=== PATIENT | male | born 1925 | race Caucasian/White ===

== ENCOUNTER → 2016-07-07 | Outpatient (CLI) | payer MEDICARE, MEDICAID ==
[~2016-07-07] MED LIST: ACET325T38 PO; AMLO10TA82 PO; AMLO5TAB2 PO; AMOX500C2 PO; ASPI-586 PO; ASPI-84 PO; ATEN100T88; B; BENA; BUSP10TA95 PO; CALC-80 PO; CETI10CA PO; CHOL2000 PO; CITA10TA12 PO; CITA20TA12 PO; CNC1KV IJ; CYCL10TA9 PO; DCS100C PO; DENO60DI SQ; DITROPAN; DIVA125T2 PO; DNPZ10T; DONE5TAB30 PO; FOLI0.8C PO; FOLI1TAB24 PO; FOLIC ACID PO; GALA8TAB PO; GUAI-371; GUAI5SYR PO; HCT25T; HYDR-3002 PO; LCT30U PO; LISI40TA; LORA0.5T PO; LRT10T; MELA3TAB PO; MEMA5TAB2 PO; MEMA7CAP PO; MULT-68 PO; OMEG-109 PO; OMEG-9 PO; OXYB5TAB9 PO; PANT40TA2 PO; PANT40TA3 PO; POLY17PO23 PO; PRAV10TA PO; PRAV20TA PO; PROCRIT INJ; SENN-140 PO; SENN-20 PO; SIMV10TA PO; VIT; VIT1TABL93 PO; [UNRECOGNIZED DRUG - CODE] IJ; [UNRECOGNIZED DRUG - OTHER]; [UNRECOGNIZED DRUG - OTHER] INJ
[2016-07-07 21:47] LABS: BILIRUBIN,URINE NEGATIVE (NEGATIVE); KETONES,URINE NEGATIVE (NEGATIVE); LEUKOCYTE ESTERASE ,URINE 1+ (NEGATIVE); NITRITE,URINE NEGATIVE (NEGATIVE); PH,URINE 5 (5-9); PROTEIN,URINE 1+ (NEGATIVE); UROBILINOGEN,URINE NORMAL (NORMAL)
[2016-07-07 21:59] LABS: WBC,URINE 0-2 /HPF
[2016-07-07 22:00] LABS: HYALINE CASTS, URINE 0-2 /LPF
== END ==
LOC: HH 20:49 → CVS 20:49
PROVIDERS: ATTEND Internal Medicine
DX: R82.99 Other abnormal findings in urine (principal)
CPT/HCPCS: 81000

== ENCOUNTER 2016-07-15 21:30 | Inpatient (IN) | payer MEDICARE, MEDICAID ==
[~2016-07-15] VITALS: Ht 167.6 cm; Wt 55.9 kg
[~2016-07-15 21:30] MED LIST changes: -ACET325T38 PO; -CITA20TA12 PO; -DIVA125T2 PO; -GUAI5SYR PO; -LORA0.5T PO; -MELA3TAB PO; -PANT40TA3 PO; -SENN-140 PO
--- NOTE | 2016-07-15 22:04 | Diagnostic Imaging Report ---
INDICATION: Altered mental status. TECHNIQUE: Single view chest 9:44 PM. CORRELATION STUDY: 09/24/2015 FINDINGS: Heart size enlarged. Mediastinum is prominent but generally stable. Calcification of the aortic arch. Abnormal findings at the left lung base likely attributed to elevated diaphragm along with hernia. There is some volume loss at left lung base. Otherwise chronic change about the lung parenchyma. IMPRESSION: 1. Chronic type change about the lung parenchyma. Elevated left hemidiaphragm along with likely hernia results in some lung volume loss. Dictated by: Dictated on workstation # [id number]
[2016-07-15 22:25] LABS: BASOPHILS % (AUTO) 0 % (0-10); EOSINOPHILS # (AUTO) 0.2 10^3/uL (0.0-0.3); EOSINOPHILS % (AUTO) 3 % (0-10); LYMPHOCYTES # (AUTO) 1.7 X 10^3 (1.0-4.0); LYMPHOCYTES % (AUTO) 24 % (12-44); MEAN CORPUSCULAR HEMOGLOBIN 30 PG (25-34); MEAN CORPUSCULAR HGB CONC 31 G/DL (32-36); MEAN CORPUSCULAR VOLUME 96 FL (80-99); MEAN PLATELET VOLUME 10.9 FL (7.4-10.4); MONOCYTES # (AUTO) 0.7 X 10^3 (0.0-1.0); MONOCYTES % (AUTO) 10 % (0-12); NEUTROPHILS # (AUTO) 4.5 X 10^3 (1.8-7.8); NEUTROPHILS % (AUTO) 63 % (42-75); PLATELET COUNT 258 10^3/uL (130-400); RED BLOOD COUNT 4.41 10^6/uL (4.35-5.85); RED CELL DISTRIBUTION WIDTH 13.7 % (10.0-14.5); WHITE BLOOD COUNT 7.1 10^3/uL (4.3-11.0)
--- NOTE | 2016-07-15 22:31 | ED General ---
General Chief Complaint: Altered Mental Status Stated Complaint: AMS Source of Information: EMS, Family, Jail Records Exam Limitations: Other (PT WITH DEMENTIA AND CAN GIVE NO SIGNIFICANT INFORMATION) History of Present Illness Time Seen by Provider: 21:34 Initial Comments PT ARRIVES VIA EMS FROM VIA [facility] PT WITH DEMENTIA, BUT FAMILY REPORTS THAT HE HAS NOT BEEN NORMAL SINCE TUESDAY 07/11 THEY REPORT THAT SINCE SUNDAY, HE HAD NOT BEEN TALKING TO ANYONE WILL NOT OPEN HIS EYES, UNABLE TO STAND ( NORMALLY IS ABLE TO USE A WALKER ), AND HAD GENERALIZED TREMORS OFF AND ON--HAS BEEN ESSENTIALLY UNRESPONSIVE. THEY REPORT "IT WAS REALLY BAD ON SUNDAY" TONIGHT AROUND 1999, HE HAD AN EPISODE WHERE HE "WENT LIMP" FOR A BRIEF PERIOD OF TIME. EMS REPORT THAT ON THEIR ARRIVAL AT SCENE, PT WAS LETHARGIC AND INITIALLY WAS NOT INTERACTING AT ALL, THEN SUDDENLY HE BECAME ALERT AND WAS TALKING AND RECOGNIZED HIS . ACCUCHECK 111 BY EMS FAMILY REPORTS THAT HE IS BACK TO HIS NORMAL BASELINE NOW. PT CAN ANSWER YES/NO QUESTIONS APPROPRIATELY, AND DENIES PAIN ANYWHERE. DENIES NAUSEA. DENIES FEELING SHORT OF BREATH. DENIES HEADACHE. DENIES FEELING BAD IN ANY WAY. PT IS OTHERWISE CONFUSED AND HAS SOME NON-SENSICAL SPEECH, AND UNINTELLIGIBLE AT TIMES--FAMILY STATES IS NORMAL FOR HIM. PT IS DNR/DNI PCP: DR. WEBER Allergies and Home Medications Allergies Coded Allergies: levofloxacin (Verified Allergy, Mild, 07/06/15) Uncoded Allergies: ENVIRONMENTAL (Allergy, Mild, 07/11/08) Home Medications Acetaminophen 325 Mg Tablet, 650 MG PO Q4H PRN for PAIN-MILD OR TEMPATURE, ( Reported) Amlodipine Besylate 5 Mg Tablet, 5 MG PO DAILY for 30 Days Prescribed by: MACIE ACOSTA on 09/26/15 1002 Aspirin 81 Mg Tablet., 81 MG PO DAILY for 30 Days Prescribed by: MACIE ACOSTA on 09/26/15 1002 Citalopram Hydrobromide 20 Mg Tablet, 20 MG PO HS, (Reported) Divalproex Sodium 125 Mg Tablet.dr, 125 MG PO TID, (Reported) Guaifenesin/Dextromethorphan 5 Ml Syrup, 10 ML PO Q6H PRN for COUGH, (Reported) Lorazepam 0.5 Mg Tablet, 0.5-1 MG PO Q4H PRN for ANXIETY, (Reported) Melatonin 3 Mg Tablet, 3 MG PO HS, (Reported) Pantoprazole Sodium 40 Mg Tablet.dr, 40 MG PO DAILY, (Reported) Polyethylene Glycol 3350 17 Gm Powd.pack, 17 GM PO DAILY for 30 Days Prescribed by: TAZ LEW on 07/16/16310 Sennosides/Docusate Sodium 1 Each Tablet, 17.2 MG PO DAILY for 30 Days Prescribed by: TAZ LEW on 07/16/16310 Simvastatin 10 Mg Tablet, 10 MG PO HS for 30 Days Prescribed by: MACIE ACOSTA on 09/26/15 1002 Constitutional: see HPI Psychiatric/Neurological: See HPI Past Uzklbpc-Lkqeri-Zwlkie Hx Patient Social History Former Smoker/When Quit: Jan 01, 1974 Immunizations Up To Date Tetanus Booster (TDap): Unknown PED Vaccines UTD: No Date of Pneumonia Vaccine: Mar 19, 2010 Date of Influenza Vaccine: Jan 11, 2015 Seasonal Allergies Seasonal Allergies: No Surgeries HX Surgeries: Yes (SINUS ) Surgeries: Abdominal, Orthopedic, Prostatectomy Respiratory Hx Respiratory Disorders: No Cardiovascular Hx Cardiac Disorders: Yes Cardiac Disorders: High Cholesterol, Hypertension Neurological Hx Neurological Disorders: Yes (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) Neurological Disorders: Dementia, Stroke Reproductive System Hx Reproductive Disorders: No Sexually Transmitted Disease: No HIV/AIDS: No Genitourinary Hx Genitourinary Disorders: Yes (PROSTATE CANCER--S/P PROSTATECTOMY) Genitourinary Disorders: Prostate Problems, Renal Failure Gastrointestinal Hx Gastrointestinal Disorders: Yes Gastrointestinal Disorders: Abdominal Hernia, Gastroesophageal Reflux, Chronic Constipation, Hiatal Hernia Musculoskeletal Hx Musculoskeletal Disorders: Yes (WEAKNESS, POOR COORDINATION) Musculoskeletal Disorders: Osteoporosis, Arthritis, Back Injury, Chronic Back Pain, Fractures Endocrine Hx Endocrine Disorders: No HEENT HX ENT Disorders: No Loss of Vision: Denies Hearing Impairment: Hard of Hearing Cancer Hx Cancer: Yes Cancer: Prostate Psychosocial Hx Psychiatric Problems: No Behavioral Health Disorders: Depression Integumentary HX Skin/Integumentary Disorder: No Blood Transfusions Hx Blood Disorders: Yes (ANEMIA) Family Medical History Significant Family History: No Pertinent Family Hx Family Medial History: Completed stroke G8 BROTHER Dementia 19 FATHER G8 BROTHER G8 SISTER Hypertension G8 BROTHER Myocardial infarction 19 MOTHER No Family History of: AIDS Abdominal aortic aneurysm [place]'s disease Alcoholism Alzheimer's disease Aphasia Arthritis Asthma Cancer of mouth Cardiovascular disease Cataracts Colon cancer Congenital disease Congenital heart disease Coronary thrombosis Cystic fibrosis Deafness or hearing loss Diabetes mellitus Drug abuse Dysphasia Fibrocystic disease of breast Gastroenteritis Glaucoma Headache disorder Infertility Kidney disease Neoplasm Not obtainable due to adoption Osteoporosis Parkinson's disease Prostate cancer Psychosocial problem Respiratory disorder Seizure disorder Severe allergy Thyroid disease Tuberculosis Visual disorder Physical Exam Vital Signs Vital Sign - Last 12Hours 07/15/16 07/16/16 22:31 01:00 Temp 97.5 Pulse 86 Resp 18 B/P (MAP) 127/ Pulse Ox 97 O2 Delivery Room Air Capillary Refill : General Appearance: Thin, Other (PT RESTING, OPENS EYES SPONTANEOUSLY TO VOICE. ) Respiratory: Normal Breath Sounds, No Accessory Muscle Use, No Respiratory Distress Cardiovascular: Regular Rate, Rhythm, No Edema, No Murmur Gastrointestinal: Non Tender, Soft Extremity: Normal Range of Motion, Non Tender, No Pedal Edema Neurologic/Psychiatric: Alert, No Motor/Sensory Deficits (GROSSLY INTACT. ), Other (ORIENTED TO PERSON, DISORIENTED TO PLACE, TIME, SITUATION. ANSWERS YES/ NO QUESTIONS APPROPRIATELY, BUT OTHERWISE SPEECH IS NON-SENSICAL AND UNINTILLEGIBLE AT TIMES. CAN FOLLOW VERY SIMPLE COMMANDS) Skin: Normal Color, Warm/Dry Focused Exam Lactic Acid Level Laboratory Tests Test 07/16/16 00:19 Lactic Acid Level 1.67 MMOL/L (0.50-2.00) Progress/Results/Core Measures Results/Orders Lab Results Laboratory Tests Test 07/15/16 22:15 07/15/16 23:10 07/16/16 00:19 Range/Units White Blood Count 7.1 4.3-11.0 10^3/uL Red Blood Count 4.41 4.35-5.85 10^6/uL Hemoglobin 13.2 L 13.3-17.7 G/DL Hematocrit 42 40-54 % Mean Corpuscular Volume 96 80-99 FL Mean Corpuscular Hemoglobin 30 25-34 PG Mean Corpuscular Hemoglobin Concent 31 L 32-36 G/DL Red Cell Distribution Width 13.7 10.0-14.5 % Platelet Count 258 130-400 10^3/uL Mean Platelet Volume 10.9 H 7.4-10.4 FL Neutrophils (%) (Auto) 63 42-75 % Lymphocytes (%) (Auto) 24 12-44 % Monocytes (%) (Auto) 10 0-12 % Eosinophils (%) (Auto) 3 0-10 % Basophils (%) (Auto) 0 0-10 % Neutrophils # (Auto) 4.5 1.8-7.8 X 10^3 Lymphocytes # (Auto) 1.7 1.0-4.0 X 10^3 Monocytes # (Auto) 0.7 0.0-1.0 X 10^3 Eosinophils # (Auto) 0.2 0.0-0.3 10^3/uL Basophils # (Auto) 0.0 0.0-0.1 10^3/uL Prothrombin Time 13.0 12.2-14.7 SEC INR Comment 1.0 0.8-1.4 Activated Partial Thromboplast Time 24 24-35 SEC Sodium Level 146 H 135-145 MMOL/L Potassium Level 4.6 3.6-5.0 MMOL/L Chloride Level 107 98-107 MMOL/L Carbon Dioxide Level 28 21-32 MMOL/L Anion Gap 11 5-14 MMOL/L Blood Urea Nitrogen 41 H 7-18 MG/DL Creatinine 2.52 H 0.60-1.30 MG/DL Estimat Glomerular Filtration Rate 24 BUN/Creatinine Ratio 16 Glucose Level 118 H 70-105 MG/DL Calcium Level 9.8 8.5-10.1 MG/DL Magnesium Level 2.9 H 1.8-2.4 MG/DL Total Bilirubin 0.4 0.1-1.0 MG/DL Aspartate Amino Transf (AST/SGOT) 18 5-34 U/L Alanine Aminotransferase (ALT/SGPT) 11 0-55 U/L Alkaline Phosphatase 62 40-136 U/L Troponin I < 0.30 <0.30 NG/ML Total Protein 7.0 6.4-8.2 G/DL Albumin 4.0 3.2-4.5 G/DL TSH [place] Testing 2.05 0.35-4.94 UIU/ML Urine Color YELLOW Urine Clarity CLEAR Urine pH 6 5-9 Urine Specific [place] 1.020 1.016-1.022 Urine Protein 1+ H NEGATIVE Urine Glucose (UA) NEGATIVE NEGATIVE Urine Ketones 1+ H NEGATIVE Urine Nitrite NEGATIVE NEGATIVE Urine Bilirubin NEGATIVE NEGATIVE Urine Urobilinogen NORMAL NORMAL MG/DL Urine Leukocyte Esterase NEGATIVE NEGATIVE Urine RBC (Auto) 5+ H NEGATIVE Urine RBC >100 H /HPF Urine WBC 5-10 H /HPF Urine Squamous Epithelial Cells 0-2 /HPF Urine Crystals NONE /LPF Urine Bacteria TRACE /HPF Urine Casts PRESENT /LPF Urine Hyaline Casts 0-2 H /LPF Urine Mucus SMALL H /LPF Urine Culture Indicated YES Lactic Acid Level 1.67 0.50-2.00 MMOL/L My Orders Orders - TARA OLGUIN DO Saline Lock/Iv-Start (07/15/16 21:34) Ekg Tracing (07/15/16 21:34) Monitor-Rhythm Ecg Trace Only (07/15/16 21:34) Ct Head Wo (07/15/16 21:34) Cbc With Automated Diff (07/15/16 21:34) Comprehensive Metabolic Panel (07/15/16 21:34) Magnesium (07/15/16 21:34) Protime With Inr (07/15/16 21:34) Partial Thromboplastin Time (07/15/16 21:34) Thyroid Analyzer (07/15/16 21:34) Troponin I (07/15/16 21:34) Ua Culture If Indicated (07/15/16 21:34) Chest 1 View, Ap/Pa Only (07/15/16 21:34) O2 (07/15/16 21:34) Urine Culture (07/15/16 23:10) Lactic Acid Analyzer (07/15/16 23:40) Blood Culture (07/15/16 23:40) Saline Lock/Iv-Start (07/15/16 23:40) D5 1/2 Ns 1000 Ml Iv Solution (Dextrose (07/15/16 23:45) Ceftriaxone Injection (Rocephin Injectio (07/15/16 23:45) Vital Signs/I&O Vital Sign - Last 12Hours 07/15/16 07/16/16 07/16/16 22:31 01:00 01:08 Temp 97.5 98.6 97.5 Pulse 86 77 78 Resp 18 16 16 B/P (MAP) 127/ 137/73 Pulse Ox 97 98 O2 Delivery Room Air Room Air Progress Note : Progress Note UNEVENTFUL ER STAY PT RESTED QUIETLY FOR MOST OF ER STAY, BUT WAKES / ROUSES EASILY AND IS ALERT AND AT HIS NORMAL BASELINE, IS CONVERSIVE BUT CONFUSED --RECOGNIZES FAMILY. FOLLOWS VERY SIMPLE COMMANDS. ECG Initial ECG Impression Time: 22:02 Initial ECG Rate: 76 Initial ECG Rhythm: Normal Sinus Initial ECG Comparisson: Unchanged Diagnostic Imaging Comments CXR--NO ACUTE PROCESS, CHRONIC CHANGES--PER RADIOLOGIST REPORT @ 2230 CT HEAD--NO ACUTE PROCESS, CHRONIC CHANGES--PER [facility] VIA FAX @ [id number] Reviewed: Reviewed by Me Departure Communication Progress Notes 2338--SPOKE WITH DR. SOUSA, COVERING FOR DR. ACOSTA. ACCEPTS PT FOR ADMIT. Impression Impression: Primary Impression: ALTERED MENTAL STATUS -RESOLVED Additional Impressions: Dementia UTI (urinary tract infection) Dehydration Acute on chronic renal failure Disposition: ADMITTED INPATIENT Condition: Stable Decision to Admit Reason: Admit from ER (General) Decision to Admit/Date: Jul 15, 2016 Time/Decision to Admit Time: 23:40 Departure-Patient Inst. Referrals: NGUYEN WEBER DO (PCP/Family) Primary Care Physician Scripts Sennosides/Docusate Sodium (Senna-Time S Tablet) 1 Each Tablet 17.2 MG PO DAILY for 30 Days, TAB Prov: NGUYEN WEBER DO 07/16/16 Polyethylene Glycol 3350 (Polyethylene Glycol 3350) 17 Gm Powd.pack 17 GM PO DAILY for 30 Days, EACH Prov: NGUYEN WEBER DO 07/16/16 TARA OLGUIN DO Jul 15, 2016 22:31
[2016-07-15 22:44] LABS: ALANINE AMINOTRANSFERASE 11 U/L (0-55); ANION GAP 11 MMOL/L (5-14); ASPARTATE AMINO TRANSFERASE 18 U/L (5-34); BILIRUBIN,TOTAL 0.4 MG/DL (0.1-1.0); BLOOD UREA NITROGEN 41 MG/DL (7-18); BUN/CREATININE RATIO 16; CALCIUM 9.8 MG/DL (8.5-10.1); CARBON DIOXIDE 28 MMOL/L (21-32); CHLORIDE 107 MMOL/L (98-107); CREATININE SERUM 2.52 MG/DL (0.60-1.30); GFR ESTIMATED 24; GLUCOSE 118 MG/DL (70-105); MAGNESIUM 2.9 MG/DL (1.8-2.4); POTASSIUM 4.6 MMOL/L (3.6-5.0); SODIUM 146 MMOL/L (135-145)
[2016-07-15 23:04] LABS: TROPONIN I < 0.30 NG/ML (<0.30)
[2016-07-15 23:19] LABS: BILIRUBIN,URINE NEGATIVE (NEGATIVE); KETONES,URINE 1+ (NEGATIVE); LEUKOCYTE ESTERASE ,URINE NEGATIVE (NEGATIVE); NITRITE,URINE NEGATIVE (NEGATIVE); PH,URINE 6 (5-9); PROTEIN,URINE 1+ (NEGATIVE); UROBILINOGEN,URINE NORMAL (NORMAL)
[2016-07-15 23:31] LABS: HYALINE CASTS, URINE 0-2 /LPF; SQUAMOUS EPITHELIAL CELL,UR 0-2 /HPF
[2016-07-15] MEDS ORDERED: D5 1/2 NS 1000 ML IV SOLUTION 1,000 ML IV ONE (23:45)
[2016-07-15] MEDS ORDERED: cefTRIAXone INJECTION 1,000 MG in NS (IVPB) 50 ML IV ONE (23:45)
[2016-07-16 01:00] VITALS: BP 137/73
[2016-07-16] MEDS ORDERED: LORA0.5T PO (03:11)
[2016-07-16] MEDS ORDERED: POLY17PO23 PO (03:11)
[2016-07-16] MEDS ORDERED: MELA3TAB PO (03:11)
[2016-07-16] MEDS ORDERED: CITA20TA12 PO (03:11)
[2016-07-16] MEDS ORDERED: DIVA125T2 PO (03:11)
[2016-07-16] MEDS ORDERED: GUAI5SYR PO (03:11)
[2016-07-16] MEDS ORDERED: PANT40TA3 PO (03:11)
[2016-07-16] MEDS ORDERED: SENN-20 PO (03:11)
[2016-07-16] MEDS ORDERED: ACET325T38 PO (03:11)
[2016-07-16 04:03] VITALS: BP 100/64
[2016-07-16] MEDS ORDERED: CATHETER FLUSH 10 ML SYR IV PRN (06:00)
[2016-07-16] MEDS: D5 1/2 NS 1000 ML IV SOLUTION 1,000 ML IV SCH ×3 (06:01→20:53)
[2016-07-16] MEDS: CATHETER FLUSH 10 ML SYR IV SCH ×3 (06:01→20:04)
[2016-07-16 06:15] LABS: BASOPHILS % (AUTO) 0 % (0-10); EOSINOPHILS # (AUTO) 0.2 10^3/uL (0.0-0.3); EOSINOPHILS % (AUTO) 3 % (0-10); LYMPHOCYTES # (AUTO) 2.1 X 10^3 (1.0-4.0); LYMPHOCYTES % (AUTO) 33 % (12-44); MEAN CORPUSCULAR HEMOGLOBIN 30 PG (25-34); MEAN CORPUSCULAR HGB CONC 31 G/DL (32-36); MEAN CORPUSCULAR VOLUME 96 FL (80-99); MEAN PLATELET VOLUME 11.3 FL (7.4-10.4); MONOCYTES # (AUTO) 0.6 X 10^3 (0.0-1.0); MONOCYTES % (AUTO) 9 % (0-12); NEUTROPHILS # (AUTO) 3.4 X 10^3 (1.8-7.8); NEUTROPHILS % (AUTO) 54 % (42-75); PLATELET COUNT 219 10^3/uL (130-400); RED BLOOD COUNT 3.97 10^6/uL (4.35-5.85); RED CELL DISTRIBUTION WIDTH 13.3 % (10.0-14.5); WHITE BLOOD COUNT 6.2 10^3/uL (4.3-11.0)
[2016-07-16 06:30] LABS: ALBUMIN 3.6 G/DL (3.2-4.5); BILIRUBIN,TOTAL 0.2 MG/DL (0.1-1.0); CALCIUM 9.2 MG/DL (8.5-10.1); CREATININE SERUM 2.2 MG/DL (0.60-1.30); POTASSIUM 4.1 MMOL/L (3.6-5.0); TOTAL PROTEIN 6.2 G/DL (6.4-8.2)
--- NOTE | 2016-07-16 06:36 | Diagnostic Imaging Report ---
PROCEDURE: CT head without contrast. TECHNIQUE: Multiple contiguous axial images were obtained through the brain without the use of intravenous contrast. INDICATION: Altered mental status. Comparison made with prior examination 09/24/15 FINDINGS: There is prominence of the ventricles and sulci. There is no hydrocephalus or cerebral edema. There is no midline shift or mass-effect. There is no intracranial mass, hemorrhage, or extra-axial fluid collection. There is some diffuse decreased attenuation of the periventricular white matter which is nonspecific. The visualized paranasal sinuses and mastoid air cells are clear. There are no regional areas of decreased attenuation appreciated to suggest an acute CVA. IMPRESSION: 1. No acute intracranial process. 2. Age-appropriate atrophy. 3. Decreased attenuation of the periventricular white matter which is nonspecific, however, likely reflects senescent change and/or chronic small vessel ischemic disease. If there is high clinical concern for an acute CVA, further evaluation with MRI should be considered Dictated by: Dictated on workstation # [id number]
[2016-07-16 08:00] VITALS: BP 144/80
[2016-07-16] MEDS ORDERED: LORazepam 0.5 MG (ATIVAN) TABLET PO PRN (10:30)
[2016-07-16] MEDS ORDERED: guaiFENesin/DM (ROBITUSSIN DM) 10 ML UDC PO PRN (10:30)
[2016-07-16] MEDS ORDERED: ACETAMINOPHEN 325 MG TABLET/CAPLET (TYLENOL) PO PRN (10:30)
--- NOTE | 2016-07-16 10:37 | History & Physical-Hospitalist ---
HPI History of Present Illness: HPI/Chief Complaint CC: Altered mental status HPI: This is an 89-year-old white male that is very debilitated and demented of Dr. Bentley's that resides at [facility] with a past medical history of COPD peripheral vascular disease and chronic renal insufficiency with overall cachexia that presents to the emergency room after he was found to be confused and weak and tremors occurring at the custodial. He was found to have a UTI with sepsis thus he was admitted placed on IV antibiotics and IV fluids and overall he is responding. He did have hospice services the last time I took care of him but they discontinued that because he was doing so well. At this current time he is so demented that he can't carry on any type of conversation with me and he appears to be more declined and last assessed. is at the bedside. Source: caregiver Exam Limitations: clinical condition (dementia) Date Seen 07/16/16 Attending Physician Miko Bentley DO PCP Miko Bentley DO Referring Physician Date of Admission Jul 15, 2016 at 23:40 Home Medications & Allergies Home Medications Reviewed patient Home Medication Reconciliation Form Allergies Allergies Coded Allergies levofloxacin (Verified Allergy, Mild, 07/06/15) Uncoded Allergies ENVIRONMENTAL ( Allergy, Mild, 07/11/08) Past Fesvjes-Mlbxll-Ubtcun Hx Patient Social History Marrital Status: Employed/Student: retired Alcohol Use: Denies Use Recreational Drug Use: No Smoking Status: Never a Smoker Former smoker/When Quit: Jan 01, 1974 Physical Abuse Screen: No Sexual Abuse: No Recent Foreign Travel: No Contact w/other who traveled: No Recent Hopitalizations: No Recent Infectious Disease Expo: No Immunizations Up To Date Tetanus Booster (TDap): Unknown Date of Pneumonia Vaccine: Jul 16, 2013 Date of Influenza Vaccine: Jan 11, 2015 Seasonal Allergies Seasonal Allergies: No Surgeries HX Surgeries: Yes (SINUS ) Surgeries: Abdominal, Orthopedic, Prostatectomy Respiratory Hx Respiratory Disorders: Yes Respiratory Disorders: COPD Cardiovascular Hx Cardiovascular Disorders: Yes Cardiac Disorders: High Cholesterol, Hypertension Neurological Hx Neurological Disorders: Yes (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) Neurological Disorders: Dementia, Stroke Reproductive System Hx Reproductive Disorders: No Sexually Transmitted Disease: No HIV/AIDS: No Genitourinary Hx Genitourinary Disorders: Yes (PROSTATE CANCER--S/P PROSTATECTOMY) Genitourinary Disorders: Prostate Problems, Renal Failure Gastrointestinal Hx Gastrointestinal Disorders: Yes Gastrointestinal Disorders: Abdominal Hernia, Gastroesophageal Reflux, Chronic Constipation, Hiatal Hernia Musculoskeletal Hx Musculoskeletal Disorders: Yes (WEAKNESS, POOR COORDINATION) Musculoskeletal Disorders: Osteoporosis, Arthritis, Back Injury, Chronic Back Pain, Fractures Endocrine Hx Endocrine Disorders: No HEENT HX ENT Disorders: No Loss of Vision: Denies Hearing Impairment: Hard of Hearing Cancer Hx Cancer: Yes Cancer: Prostate Psychosocial Hx Psychiatric Problems: No Behavioral Health Disorders: Depression Integumentary HX Skin/Integumentary Disorder: No Blood Transfusions Hx Blood Disorders: Yes (ANEMIA) Family Medical History Significant Family History: No Pertinent Family Hx Family Hx: Completed stroke G8 BROTHER Dementia 19 FATHER G8 BROTHER G8 SISTER Hypertension G8 BROTHER Myocardial infarction 19 MOTHER No Family History of: AIDS Abdominal aortic aneurysm Daniels's disease Alcoholism Alzheimer's disease Aphasia Arthritis Asthma Cancer of mouth Cardiovascular disease Cataracts Colon cancer Congenital disease Congenital heart disease Coronary thrombosis Cystic fibrosis Deafness or hearing loss Diabetes mellitus Drug abuse Dysphasia Fibrocystic disease of breast Gastroenteritis Glaucoma Headache disorder Infertility Kidney disease Neoplasm Not obtainable due to adoption Osteoporosis Parkinson's disease Prostate cancer Psychosocial problem Respiratory disorder Seizure disorder Severe allergy Thyroid disease Tuberculosis Visual disorder Review of Systems ROS-Unable to Obtain: unreliable due to dementia Constitutional: see HPI Physical Exam Physical Exam Vital Signs Vital Sign - Last 12Hours 07/15/16 07/16/16 22:31 01:00 Temp 97.5 Pulse 86 Resp 18 B/P (MAP) 127/ Pulse Ox 97 O2 Delivery Room Air Capillary Refill : Less Than 3 Seconds General Appearance: No Apparent Distress, Chronically ill, Cachetic Eyes: Bilateral Eye Normal Inspection, Bilateral Eye PERRL HEENT: PERRL/EOMI, Normal ENT Inspection, Pharynx Normal Neck: Full Range of Motion, Normal Inspection, Non Tender, Supple, Carotid Bruit Respiratory: Chest Non Tender, Lungs Clear, Normal Breath Sounds, No Accessory Muscle Use, No Respiratory Distress Cardiovascular: Regular Rate, Rhythm, No Edema, No Gallop, No JVD, No Murmur, Normal Peripheral Pulses Gastrointestinal: Normal Bowel Sounds, No Organomegaly, No Pulsatile Mass, Non Tender, Soft Back: Normal Inspection, No CVA Tenderness, No Vertebral Tenderness Extremity: Normal Capillary Refill, Normal Inspection, Normal Range of Motion, Non Tender, No Calf Tenderness, No Pedal Edema Neurologic/Psychiatric: Alert, No Motor/Sensory Deficits, Depressed Affect, Disoriented x3 Skin: Normal Color, Warm/Dry Lymphatic: No Adenopathy Results Results/Procedures Lab Laboratory Tests 07/15/16 22:15 07/16/16 05:35 Assessment/Plan Admission Diagnosis Assessment: UTI with sepsis Severe dementia previous hospice enrollee Hypertension Chronic renal insufficiency Progression Fall risk Overall debility with poor prognosis Assessment and Plan Plan: Decrease IV fluid to prevent volume overload Check labs in a.m. Empiric antibiotics with Rocephin Restarted all home meds especially dementia meds with behavior controllers Poor prognosis DO NOT RESUSCITATE Clinical Quality Measures DVT/VTE Risk/Contraindication: Risk Factor Score Per Nursin RFS Level Per Nursing on Admit: 2=Moderate MACIE ACOSTA DO Jul 16, 2016 10:37
[2016-07-16] MEDS: POLYETHYLENE GLYCOL 17 GM (MIRALAX) PACK PO SCH (10:51)
[2016-07-16] MEDS: SENNA W/DOCUSATE (SENOKOT S) TABLET PO SCH (10:51)
[2016-07-16] MEDS: PANTOPRAZOLE 40 MG (PROTONIX) TAB PO SCH (10:51)
[2016-07-16] MEDS: amLODIPine 5 MG (NORVASC) TAB PO SCH (10:51)
[2016-07-16] MEDS: ASPIRIN E.C. 81 MG (ECOTRIN) TAB PO SCH (10:51)
[2016-07-16 12:28] VITALS: BP 122/59
[2016-07-16] MEDS: DIVALPROX SPRINKLE 125 MG (DEPAKOTE) CAP PO SCH ×2 (13:35→20:50)
[2016-07-16 16:20] VITALS: BP 136/67
[2016-07-16 20:05] VITALS: BP 140/65
[2016-07-16] MEDS ORDERED: SIMvastatin 10 MG (ZOCOR) TAB PO SCH (21:00)
[2016-07-16] MEDS ORDERED: MELATONIN 3 MG TABLET PO SCH (21:00)
[2016-07-16] MEDS ORDERED: cefTRIAXone 1 GM/NS 50 ML IVPB IV SCH ×2 (21:00)
[2016-07-17 00:33] VITALS: BP 130/68
[2016-07-17 03:36] VITALS: BP 115/65
[2016-07-17] MEDS: CATHETER FLUSH 10 ML SYR IV SCH (06:01)
[2016-07-17 06:14] LABS: BASOPHILS % (AUTO) 1 % (0-10); EOSINOPHILS # (AUTO) 0.2 10^3/uL (0.0-0.3); EOSINOPHILS % (AUTO) 4 % (0-10); LYMPHOCYTES # (AUTO) 2.2 X 10^3 (1.0-4.0); LYMPHOCYTES % (AUTO) 42 % (12-44); MEAN CORPUSCULAR HEMOGLOBIN 30 PG (25-34); MEAN CORPUSCULAR HGB CONC 31 G/DL (32-36); MEAN CORPUSCULAR VOLUME 95 FL (80-99); MEAN PLATELET VOLUME 10.6 FL (7.4-10.4); MONOCYTES # (AUTO) 0.5 X 10^3 (0.0-1.0); MONOCYTES % (AUTO) 10 % (0-12); NEUTROPHILS # (AUTO) 2.3 X 10^3 (1.8-7.8); NEUTROPHILS % (AUTO) 44 % (42-75); PLATELET COUNT 180 10^3/uL (130-400); RED BLOOD COUNT 3.44 10^6/uL (4.35-5.85); RED CELL DISTRIBUTION WIDTH 12.8 % (10.0-14.5); WHITE BLOOD COUNT 5.4 10^3/uL (4.3-11.0)
[2016-07-17 06:36] LABS: ALBUMIN 2.9 G/DL (3.2-4.5); BILIRUBIN,TOTAL 0.3 MG/DL (0.1-1.0); CALCIUM 8.5 MG/DL (8.5-10.1); CREATININE SERUM 1.63 MG/DL (0.60-1.30); POTASSIUM 4.2 MMOL/L (3.6-5.0); TOTAL PROTEIN 4.9 G/DL (6.4-8.2)
[2016-07-17 08:00] VITALS: BP 129/59
[2016-07-17] MEDS ORDERED: SENN-140 PO (09:07)
[2016-07-17] MEDS ORDERED: CNC1KV IJ (09:07)
--- NOTE | 2016-07-17 09:12 | Discharge Summary-Hospitalist ---
Diagnosis/Chief Complaint Date of Admission Jul 15, 2016 at 23:40 Date of Discharge Discharge Date: July 17, 2016 Admission Diagnosis Assessment: UTI with sepsis Severe dementia previous hospice enrollee Hypertension Chronic renal insufficiency Progression Fall risk Overall debility with poor prognosis Discharge Diagnosis Assessment: UTI with sepsis but UCx NGTD Dehydration returned back to baseline renal insuff at DC s/p IVF Severe dementia previous hospice enrollee Hypertension Chronic renal insufficiency Progression Fall risk Overall debility with poor prognosis Plan: Decrease IV fluid to prevent volume overload Check labs in a.m. Empiric antibiotics with Rocephin Restarted all home meds especially dementia meds with behavior controllers Poor prognosis DO NOT RESUSCITATE Reason Hospital Visit/Course CC: Altered mental status HPI: This is an 89-year-old white male that is very debilitated and demented of Dr. Bentley's that resides at [facility] with a past medical history of COPD peripheral vascular disease and chronic renal insufficiency with overall cachexia that presents to the emergency room after he was found to be confused and weak and tremors occurring at the senior living. He was found to have a UTI with sepsis thus he was admitted placed on IV antibiotics and IV fluids and overall he is responding. He did have hospice services the last time I took care of him but they discontinued that because he was doing so well. At this current time he is so demented that he can't carry on any type of conversation with me and he appears to be more declined and last assessed. is at the bedside. Note from 07/17/16: patient's sleeping and at bedside No pain is reported No fever, vital signs stable, chronically ill and thin and pale Regular rate and rhythm, no tachypnea Patient had an uneventful hospital course he was admitted due to presumed sepsis with altered mental status due to UTI and chronic renal insufficiency with acute exacerbation. Urine culture returned 2 days later no growth to date and overall his creatinine returned back to his normal baseline at 1.6 and due to the severity of his dementia he was back to his baseline and was discharged uneventfully back to the senior living. He was a hospice candidate before he really is a hospice candidate still but will return back to the senior living and primary care provider was updated on this plan. Discharge Summary Discharge Physical Examination Allergies: Coded Allergies: levofloxacin (Verified Allergy, Mild, 07/06/15) Uncoded Allergies: ENVIRONMENTAL (Allergy, Mild, 07/11/08) Vitals & I&Os Vital Signs Date Time Temp Pulse Resp B/P (MAP) Pulse Ox O2 Delivery O2 Flow Rate FiO2 07/17/16 08:00 97.3 53 16 129/59 96 Room Air Hospital Course Labs (last 24 hrs) Laboratory Tests 07/17/16 06:04: White Blood Count 5.4, Red Blood Count 3.44L, Hemoglobin 10.2L, Hematocrit 33L, Mean Corpuscular Volume 95, Mean Corpuscular Hemoglobin 30, Mean Corpuscular Hemoglobin Concent 31L, Red Cell Distribution Width 12.8, Platelet Count 180, Mean Platelet Volume 10.6H, Neutrophils (%) (Auto) 44, Lymphocytes (%) (Auto) 42 , Monocytes (%) (Auto) 10, Eosinophils (%) (Auto) 4, Basophils (%) (Auto) 1, Neutrophils # (Auto) 2.3, Lymphocytes # (Auto) 2.2, Monocytes # (Auto) 0.5, Eosinophils # (Auto) 0.2, Basophils # (Auto) 0.0, Sodium Level 140, Potassium Level 4.2, Chloride Level 108H, Carbon Dioxide Level 26, Anion Gap 6, Blood Urea Nitrogen 27H, Creatinine 1.63H, Estimat Glomerular Filtration Rate 40, BUN/ Creatinine Ratio 17, Glucose Level 101, Calcium Level 8.5, Total Bilirubin 0.3, Aspartate Amino Transf (AST/SGOT) 13, Alanine Aminotransferase (ALT/SGPT) 9, Alkaline Phosphatase 41, Total Protein 4.9L, Albumin 2.9L Microbiology 07/16/16 Blood Culture - Preliminary, Resulted No growth 07/15/16 Urine Culture - Preliminary, Resulted NO GROWTH Pending Labs Laboratory Tests 07/17/16 06:04: White Blood Count 5.4, Red Blood Count 3.44, Hemoglobin 10.2, Hematocrit 33, Mean Corpuscular Volume 95, Mean Corpuscular Hemoglobin 30, Mean Corpuscular Hemoglobin Concent 31, Red Cell Distribution Width 12.8, Platelet Count 180, Mean Platelet Volume 10.6, Neutrophils (%) (Auto) 44, Lymphocytes (%) (Auto) 42 , Monocytes (%) (Auto) 10, Eosinophils (%) (Auto) 4, Basophils (%) (Auto) 1, Neutrophils # (Auto) 2.3, Lymphocytes # (Auto) 2.2, Monocytes # (Auto) 0.5, Eosinophils # (Auto) 0.2, Basophils # (Auto) 0.0, Sodium Level 140, Potassium Level 4.2, Chloride Level 108, Carbon Dioxide Level 26, Anion Gap 6, Blood Urea Nitrogen 27, Creatinine 1.63, Estimat Glomerular Filtration Rate 40, BUN/ Creatinine Ratio 17, Glucose Level 101, Calcium Level 8.5, Total Bilirubin 0.3, Aspartate Amino Transf (AST/SGOT) 13, Alanine Aminotransferase (ALT/SGPT) 9, Alkaline Phosphatase 41, Total Protein 4.9, Albumin 2.9 Discharge Home Medications: Active Scripts Active Polyethylene Glycol 3350 17 Gm Powd.pack 17 Gm PO DAILY 30 Days Zocor (Simvastatin) 10 Mg Tablet 10 Mg PO HS 30 Days Aspir 81 (Aspirin) 81 Mg Tablet.dr 81 Mg PO DAILY 30 Days Amlodipine Besylate 5 Mg Tablet 5 Mg PO DAILY 30 Days Reported Cyanocobalamin Injection (Cyanocobalamin) 1,000 Mcg/Ml Inj 1,000 Mcg IJ MONTHLY ON THE Senna (Sennosides) 8.6 Mg Tablet 17.2 Mg PO DAILY TAKES 2 (8.6MG) TABLETS Lorazepam 0.5 Mg Tablet 0.5-1 Mg PO Q4H PRN Guaifenesin Dm Syrup (Guaifenesin/Dextromethorphan) 5 Ml Syrup 10 Ml PO Q6H PRN Tylenol (Acetaminophen) 325 Mg Tablet 650 Mg PO Q4H PRN Pantoprazole Sodium 40 Mg Tablet.dr 40 Mg PO DAILY Melatonin 3 Mg Tablet 3 Mg PO HS Celexa (Citalopram Hydrobromide) 20 Mg Tablet 20 Mg PO HS Depakote (Divalproex Sodium) 125 Mg Tablet.dr 125 Mg PO TID Instructions to patient/family Please see electonic discharge instructions given to patient. Clinical Quality Measures DVT/VTE Risk/Contraindication: Risk Factor Score Per Nursin RFS Level Per Nursing on Admit: 2=Moderate MACIE ACOSTA DO July 17, 2016 09:12
[2016-07-17] MEDS: ASPIRIN E.C. 81 MG (ECOTRIN) TAB PO SCH (09:38)
[2016-07-17] MEDS: SENNA W/DOCUSATE (SENOKOT S) TABLET PO SCH (09:38)
[2016-07-17] MEDS: DIVALPROX SPRINKLE 125 MG (DEPAKOTE) CAP PO SCH (09:38)
[2016-07-17] MEDS: POLYETHYLENE GLYCOL 17 GM (MIRALAX) PACK PO SCH (09:38)
[2016-07-17] MEDS: PANTOPRAZOLE 40 MG (PROTONIX) TAB PO SCH (09:38)
[2016-07-17] MEDS: amLODIPine 5 MG (NORVASC) TAB PO SCH (09:38)
--- NOTE | 2016-07-17 11:57 | Physician Query ---
PQ-Uncertain Diagnosis Admission/Discharge Admission Date: Jul 15, 2016 at 23:40 Discharge Date: The medical record reflects the following clinical scenario: History/Risk Factors: Altered mental status Unable to stand Generalized tremor Dehydration Clinical Findings: T 97.5, Pulse 86, Resp 18, WBC 7.1, Lactic acid 1.67 Treatment: IV Ceftriaxone Question: Is Sepsis a clinically valid diagnosis? Sepsis was documented throughout the medical record. If sepsis is a valid diagnosis,please document criteria met. Please document a response below. PHYSICIAN RESPONSE Diagnosis clinically valid: Yes, Conditon resolved Please remember a lack of response to the above will prompt a phone page by CDI/ coding staff. In responding to this query, please exercise your independent professional judgment. The purpose of this communication is to more accurately reflect the complexity of your patients condition. The fact that a question is asked does not imply that any particular answer is desired or expected. Thank you for your timely response to this clarification. Requestors name: Rita Beatty [facility] Phone # ext [phone] or [phone] THIS PHYSICIAN QUERY FORM IS A PERMANENT PART OF THE MEDICAL RECORD RITA BEATTY July 17, 2016 11:57 MACIE ACOSTA DO July 17, 2016 15:17
--- NOTE | 2016-07-17 12:08 | Physician Query ---
PQ-Conflicting Diagnosis Admission/Discharge Admission Date: Jul 15, 2016 at 23:40 Discharge Date: The medical record reflects the following clinical scenario: History/Risk Factors: Dehydration Altered mental status Clinical Findings: Creatinine 2.52 eGFR 24 Treatment: IV fluids Question: Do you agree with the impression of the Acute renal failure per ED-Dr. Lee. Please document a response below. PHYSICIAN RESPONSE Do you agree w/Consulting Dx?: Yes Please remember a lack of response to the above will prompt a phone page by CDI/ coding staff. In responding to this query, please exercise your independent professional judgment. The purpose of this communication is to more accurately reflect the complexity of your patients condition. The fact that a question is asked does not imply that any particular answer is desired or expected. Thank you for your timely response to this clarification. Requestors name: Rita Beatty [facility] Phone # ext [phone] or [phone] THIS PHYSICIAN QUERY FORM IS A PERMANENT PART OF THE MEDICAL RECORD RITA BEATTY July 17, 2016 12:08 MACIE ACOSTA DO July 17, 2016 15:18
== END 2016-07-17 11:25 | DRG 872 ==
LOC: EDUNIT# 21:30 → ER 21:31 → 4TH 23:40
PROVIDERS: ADMIT Family Medicine; ATTEND Internal Medicine
DX: A41.9 Sepsis, unspecified organism (principal); N39.0 Urinary tract infection, site not specified; N17.9 Acute kidney failure, unspecified; E86.0 Dehydration; R64 Cachexia; I12.9 Hypertensive chronic kidney disease with stage 1 through stage 4 chronic kidney disease, or unspecified chronic kidney disease; N18.9 Chronic kidney disease, unspecified; F03.90 Unspecified dementia, unspecified severity, without behavioral disturbance, psychotic disturbance, mood disturbance, and anxiety; Z66 Do not resuscitate; J44.9 Chronic obstructive pulmonary disease, unspecified; I73.9 Peripheral vascular disease, unspecified; K21.9 Gastro-esophageal reflux disease without esophagitis; E78.00 Pure hypercholesterolemia, unspecified; I69.392 Facial weakness following cerebral infarction; F32.9 Major depressive disorder, single episode, unspecified; D64.9 Anemia, unspecified; K59.09 Other constipation; M19.91 Primary osteoarthritis, unspecified site; Z85.46 Personal history of malignant neoplasm of prostate
CPT/HCPCS: 36415; 70450; 71010; 80053; 81000; 83605; 83735; 84443; 84484; 85025; 85610; 85730; 87040; 87088; 93005; 93041; 96365

== ENCOUNTER 2016-07-18 11:14 | Emergency (ER) | payer MEDICARE, MEDICAID ==
[~2016-07-18] VITALS: Ht 167.6 cm; Wt 50.3 kg
[~2016-07-18 11:14] MED LIST changes: +ACET325T38 PO; +CITA20TA12 PO; +DIVA125T2 PO; +GUAI5SYR PO; +LORA0.5T PO; +MELA3TAB PO; +PANT40TA3 PO; +SENN-140 PO
--- NOTE | 2016-07-18 11:23 | ED Fall/Injury ---
General Chief Complaint: Trauma-Non Activation Stated Complaint: FALL Source: patient Exam Limitations: no limitations History of Present Illness Time seen by provider: 11:21 Initial Comments To ER per EMS from via [facility] with reports of a fall. Patient got up out of his chair when he fell down striking the back of his head on the floor. Laceration to the back of the head. Patient is terribly confused per baseline and does not accurately help with the history of present illness review of systems. Occurred: just prior to arrival Severity: moderate Injuries/Pain Location: head, back Associated Symptoms (Fall): No Neck Pain Allergies and Home Medications Allergies Coded Allergies: levofloxacin (Verified Allergy, Mild, 07/06/15) Uncoded Allergies: ENVIRONMENTAL (Allergy, Mild, 07/11/08) Home Medications Acetaminophen 325 Mg Tablet, 650 MG PO Q4H PRN for PAIN-MILD OR TEMPATURE, ( Reported) Amlodipine Besylate 5 Mg Tablet, 5 MG PO DAILY for 30 Days Prescribed by: MACIE ACOSTA on 09/26/15 1002 Aspirin 81 Mg Tablet.dr, 81 MG PO DAILY for 30 Days Prescribed by: MACIE ACOSTA on 09/26/15 1002 Citalopram Hydrobromide 20 Mg Tablet, 20 MG PO HS, (Reported) Cyanocobalamin 1,000 Mcg/Ml Inj, 1,000 MCG IJ MONTHLY ON THE , (Reported) Divalproex Sodium 125 Mg Tablet.dr, 125 MG PO TID, (Reported) Guaifenesin/Dextromethorphan 5 Ml Syrup, 10 ML PO Q6H PRN for COUGH, (Reported) Lorazepam 0.5 Mg Tablet, 0.5-1 MG PO Q4H PRN for ANXIETY, (Reported) Melatonin 3 Mg Tablet, 3 MG PO HS, (Reported) Pantoprazole Sodium 40 Mg Tablet.dr, 40 MG PO DAILY, (Reported) Polyethylene Glycol 3350 17 Gm Powd.pack, 17 GM PO DAILY for 30 Days Prescribed by: TAZ LEW on 07/16/16 0311 Sennosides 8.6 Mg Tablet, 17.2 MG PO DAILY, (Reported) TAKES 2 (8.6MG) TABLETS Simvastatin 10 Mg Tablet, 10 MG PO HS for 30 Days Prescribed by: MACIE ACOSTA on 09/26/15 1002 Constitutional: see HPI Eyes: No Symptoms Reported Ears, Nose, Mouth, Throat: no symptoms reported Respiratory: no symptoms reported Cardiovascular: no symptoms reported Genitourinary: no symptoms reported Musculoskeletal: see HPI, back pain Skin: no symptoms reported Psychiatric/Neurological: No Symptoms Reported Past Nvwqtjy-Qnlrut-Arftgy Hx Patient Social History Former Smoker/When Quit: Jan 01, 1974 Recent Hopitalizations: No Immunizations Up To Date Tetanus Booster (TDap): Unknown PED Vaccines UTD: Yes Date of Pneumonia Vaccine: Jul 16, 2013 Date of Influenza Vaccine: Jan 11, 2015 Seasonal Allergies Seasonal Allergies: No Surgeries HX Surgeries: Yes (SINUS ) Surgeries: Abdominal, Orthopedic, Prostatectomy Respiratory Hx Respiratory Disorders: Yes Cardiovascular Hx Cardiac Disorders: Yes Cardiac Disorders: High Cholesterol, Hypertension Neurological Hx Neurological Disorders: Yes (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) Neurological Disorders: Dementia, Stroke Reproductive System Hx Reproductive Disorders: No Sexually Transmitted Disease: No HIV/AIDS: No Genitourinary Hx Genitourinary Disorders: Yes (PROSTATE CANCER--S/P PROSTATECTOMY) Genitourinary Disorders: Prostate Problems, Renal Failure Gastrointestinal Hx Gastrointestinal Disorders: Yes Gastrointestinal Disorders: Abdominal Hernia, Gastroesophageal Reflux, Chronic Constipation, Hiatal Hernia Musculoskeletal Hx Musculoskeletal Disorders: Yes (WEAKNESS, POOR COORDINATION) Musculoskeletal Disorders: Osteoporosis, Arthritis, Back Injury, Chronic Back Pain, Fractures Endocrine Hx Endocrine Disorders: No HEENT HX ENT Disorders: No Loss of Vision: Denies Hearing Impairment: Hard of Hearing Cancer Hx Cancer: Yes Cancer: Prostate Psychosocial Hx Psychiatric Problems: No Behavioral Health Disorders: Depression Integumentary HX Skin/Integumentary Disorder: No Blood Transfusions Hx Blood Disorders: Yes (ANEMIA) Family Medical History Significant Family History: No Pertinent Family Hx Family Medial History: Completed stroke G8 BROTHER Dementia 19 FATHER G8 BROTHER G8 SISTER Hypertension G8 BROTHER Myocardial infarction 19 MOTHER No Family History of: AIDS Abdominal aortic aneurysm Pitt's disease Alcoholism Alzheimer's disease Aphasia Arthritis Asthma Cancer of mouth Cardiovascular disease Cataracts Colon cancer Congenital disease Congenital heart disease Coronary thrombosis Cystic fibrosis Deafness or hearing loss Diabetes mellitus Drug abuse Dysphasia Fibrocystic disease of breast Gastroenteritis Glaucoma Headache disorder Infertility Kidney disease Neoplasm Not obtainable due to adoption Osteoporosis Parkinson's disease Prostate cancer Psychosocial problem Respiratory disorder Seizure disorder Severe allergy Thyroid disease Tuberculosis Visual disorder Physical Exam Vital Signs Vital Sign - Last 12Hours 07/18/16 11:21 Temp 98.3 Pulse 86 Resp 20 B/P (MAP) 154/74 Pulse Ox 99 O2 Delivery Room Air Capillary Refill : General Appearance: WD/WN, no apparent distress HEENT: PERRL/EOMI, normal ENT inspection Neck: non-tender, full range of motion Cardiovascular: regular rate, rhythm, no murmur Respiratory: lungs clear, normal breath sounds, no respiratory distress, no accessory muscle use Gastrointestinal: normal bowel sounds, non tender, soft Neurologic/Psychiatric: alert, disoriented x 3 [place] Coma Score Best Eye Response: (4) Open Spontaneously Best Verbal Response: (4) Confused Conversation Best Motor Response: (6) Obeys Commands Chiqui Total: 14 Laceration Repair : Wound Location: Scalp Wound Length (cm): 2 Wound's Depth, Shape: sub Q Wound Explored: clean Irrigated w/ Saline (ccs): 30 Anesthesia: 1% Lidocaine Volume Anesthetic (ccs): 2 Staple Repair: Stapler 35W Progress 4 yony Progress/Results/Core Measures Results/Orders My Orders Orders - EZ LOUIS APRN Ct Head/Cervical Spine Wo (07/18/16 11:19) Chest 1 View, Ap/Pa Only (07/18/16 11:19) Humerus, Right, 2 Views (07/18/16 11:19) Forearm, Right, 2 Views (07/18/16 11:19) Pelvis/Madhav Hips 2 Views (07/18/16 11:19) Dipht,Pertuss(Acell),Tet Adult (Boostrix (07/18/16 11:30) Lidocaine 2% Injection 20 Ml (Xylocaine (07/18/16 11:30) Ct Thoracic/Lumbar Spine Wo (07/18/16 11:23) Shoulder, Right, 3 Views (07/18/16 12:23) Hydrocodone/Apap 5/325 Tablet (Lortab 5 (07/18/16 12:45) Medications Given in ED Current Medications Medications Dose Ordered Sig/Monica Route Start Time Stop Time Status Last Admin Dose Admin Diphtheria/ Tetanus/Acell Pertussis 0.5 ml ONCE ONCE IM 07/18/16 11:30 07/18/16 11:31 DC 07/18/16 12:19 0.5 ML Lidocaine HCl 2 ml ONCE ONCE INJ 07/18/16 11:30 07/18/16 11:31 DC 07/18/16 12:18 2 ML Vital Signs/I&O Vital Sign - Last 12Hours 07/18/16 11:21 Temp 98.3 Pulse 86 Resp 20 B/P (MAP) 154/74 Pulse Ox 99 O2 Delivery Room Air Diagnostic Imaging Diagonstic Imaging: CT Comments NAME: Kimberly DONOVAN [facility] REC#: [id number] PT STATUS: REG ER : 1925 PHYSICIAN: EZ LOUIS APRN ADMIT DATE: 07/18/16/ER Draft Date of Exam:07/18/16 CT HEAD/CERVICAL SPINE WO PROCEDURE: CT head and CT cervical spine without contrast. TECHNIQUE: Multiple contiguous axial images were obtained through the brain and cervical spine without the use of intravenous contrast. Sagittal and coronal reformations through the cervical spine were then performed. INDICATION: Fall. Laceration on the back of the head. FINDINGS: CT HEAD: There is a small scalp hematoma along the posterior central parietal region of the scalp. Hyperdensities projecting over the frontal lobe appears to be related to beam hardening artifacts with no definite intracranial hemorrhage. There is mild dilatation of the lateral ventricles which may relate to ex vacuo dilatation from age related atrophy. No obstructive mass is seen along the ventricular system. There are periventricular and deep white matter hypodensities compatible with chronic microvascular ischemic changes. The visualized portions of the orbits, paranasal sinuses and the calvarium appear grossly unremarkable. CT CERVICAL SPINE: There is osseous fusion of vertebral bodies C5 and C6 along the periphery of the endplates. There is alignment abnormalities including 2 mm anterior translation of C4 over C5 and 3 mm anterior translation of C6 over C7. This is associated with significant disc degenerative changes at the mid cervical spine levels with disc height loss at multiple levels, most severe at C5/6. At this level, there is also posterior osteophytes formation. The facet joint alignment is satisfactory with prominent degenerative changes at multiple levels. There is no widening of the predental space. The alignment of the lateral masses of C1 and C2 and atlantooccipital joints appear satisfactory. The vertebral body heights are preserved. No fracture is seen. There is high-grade foraminal stenosis generally worse on the left in the lower cervical spine and most prominent at C4/5 and C5/6 levels. IMPRESSION: CT HEAD: There is a small scalp hematoma in the posterior central parietal region with no definite intracranial hemorrhage. Hyperdensities projecting over the anterior frontal lobes are favored to be artifactual. Correlate clinically and with followup exams if needed. CT CERVICAL SPINE: Advanced degenerative changes. The alignment abnormalities described are probably degenerative in etiology. No fracture is seen. Dictated on workstation # [id number] Dict: 07/18/16 1149 Trans: 07/18/16 1206 TS [id number] Interpreted by: MALCOM LEVINE MD Electronically signed by: NAME: Kimberly DONOVAN [facility] REC#: [id number] PT STATUS: REG ER : 1925 PHYSICIAN: EZ LOUIS APRN ADMIT DATE: 07/18/16/ER Signed Date of Exam:07/18/16 CT THORACIC/LUMBAR SPINE WO CT thoracic and lumbar spine. INDICATION: Fall. Back pain. FINDINGS: CT thoracic spine: There is satisfactory alignment at the thoracic spine at the posterior spinal line and at the facet joint levels. The vertebral body heights are preserved. There is ossification of the anterior longitudinal ligament. No fracture is seen. Incidental note of a large hiatal hernia with the stomach projecting into the lower mid and left side aspect of the chest. CT lumbar spine: There is a compression fracture of L1 vertebral body with 40% vertebral body height loss. When correlated with 02/11/15 CT scan, this fracture is seen compatible with an old fracture. No acute compression fracture. The L5/S1 discs demonstrate moderate height loss and mild disc height loss at L4/L5 is seen. There is no pars defect noted. The alignment at the posterior spinal line and facet joints is satisfactory. There is osseous bridging along the periphery of the endplates around L5/S1 level and suggestion of fusion of the facet joints at L5/S1 bilaterally. Bridging syndesmophytes in the upper lumbar spine is seen. No fracture is identified. IMPRESSION: CT thoracic spine: 1. Degenerative changes. No fracture seen. 2. 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 CT lumbar spine: Old L1 compression fracture. No acute fracture. Dictated by: Dictated on workstation # [id number] Dict: 07/18/16 1157 Trans: 07/18/16 1218 [id number] Interpreted by: MALCOM LEVINE MD Electronically signed by: MALCOM LEVINE MD 07/18/16 1218 NAME: Kimberly DONOVAN [facility] REC#: [id number] PT STATUS: REG ER : 1925 PHYSICIAN: EZ LOUIS APRN ADMIT DATE: 07/18/16/ER Draft Date of Exam:07/18/16 HUMERUS, RIGHT, 2 VIEWS 2 views of the humerus. INDICATION: Fall. FINDINGS: There is question of superior and anterior subluxation of the humeral head at the glenohumeral joint. Better evaluation with dedicated right shoulder views is recommended. There is suggestion of subchondral sclerosis of the humeral head and inferior osteophyte presumably degenerative. No fracture is seen. No radiopaque foreign body. IMPRESSION: Suggestion of anterior and superior subluxation of the right shoulder. If the injury or symptoms involve the right shoulder area, dedicated right shoulder radiographs are recommended for better evaluation. Dictated on workstation # [id number] Dict: 07/18/16 1216 Trans: 07/18/16 1221 [id number] Interpreted by: MALCOM LEVINE MD Electronically signed by: Departure Communication Progress Notes Cervical collar removed at 1215 Impression Impression: Primary Impression: Fall at assisted Additional Impressions: Scalp laceration Dementia associated with other underlying disease without behavioral disturbance Disposition: 03 XFER SNF Condition: Stable Departure-Patient Inst. Decision time for Depature: 12:26 Referrals: NGUYEN WEBER DO (PCP/Family) Primary Care Physician Patient Instructions: Laceration Repair With [place] (DC) Add. Discharge Instructions: 1. Have the yony removed in 7 days. You may return here to have this done or you may do it at the assisted. All discharge instructions reviewed with patient and/or family. Voiced understanding. Copy Copies To 1: NGUYEN WEBER PETER J APRN July 18, 2016 11:23
[2016-07-18] MEDS ORDERED: TETANUS,DIPTH,PERTUSS P/F (BOOSTRIX) 0.5 ML VIAL IM ONE (11:30)
[2016-07-18] MEDS ORDERED: LIDOCAINE 2% 20 ML (XYLOCAINE) VIAL INJ ONE (11:30)
--- NOTE | 2016-07-18 12:07 | Diagnostic Imaging Report ---
PROCEDURE: CT head and CT cervical spine without contrast. TECHNIQUE: Multiple contiguous axial images were obtained through the brain and cervical spine without the use of intravenous contrast. Sagittal and coronal reformations through the cervical spine were then performed. INDICATION: Fall. Laceration on the back of the head. FINDINGS: CT HEAD: There is a small scalp hematoma along the posterior central parietal region of the scalp. Hyperdensities projecting over the frontal lobe appears to be related to beam hardening artifacts with no definite intracranial hemorrhage. There is mild dilatation of the lateral ventricles which may relate to ex vacuo dilatation from age related atrophy. No obstructive mass is seen along the ventricular system. There are periventricular and deep white matter hypodensities compatible with chronic microvascular ischemic changes. The visualized portions of the orbits, paranasal sinuses and the calvarium appear grossly unremarkable. CT CERVICAL SPINE: There is osseous fusion of vertebral bodies C5 and C6 along the periphery of the endplates. There is alignment abnormalities including 2 mm anterior translation of C4 over C5 and 3 mm anterior translation of C6 over C7. This is associated with significant disc degenerative changes at the mid cervical spine levels with disc height loss at multiple levels, most severe at C5/6. At this level, there is also posterior osteophytes formation. The facet joint alignment is satisfactory with prominent degenerative changes at multiple levels. There is no widening of the predental space. The alignment of the lateral masses of C1 and C2 and atlantooccipital joints appear satisfactory. The vertebral body heights are preserved. No fracture is seen. There is high-grade foraminal stenosis generally worse on the left in the lower cervical spine and most prominent at C4/5 and C5/6 levels. IMPRESSION: CT HEAD: There is a small scalp hematoma in the posterior central parietal region with no definite intracranial hemorrhage. Hyperdensities projecting over the anterior frontal lobes are favored to be artifactual. Correlate clinically and with followup exams if needed. CT CERVICAL SPINE: Advanced degenerative changes. The alignment abnormalities described are probably degenerative in etiology. No fracture is seen. Dictated by: Dictated on workstation # [id number]
--- NOTE | 2016-07-18 12:15 | Diagnostic Imaging Report ---
CT thoracic and lumbar spine. INDICATION: Fall. Back pain. FINDINGS: CT thoracic spine: There is satisfactory alignment at the thoracic spine at the posterior spinal line and at the facet joint levels. The vertebral body heights are preserved. There is ossification of the anterior longitudinal ligament. No fracture is seen. Incidental note of a large hiatal hernia with the stomach projecting into the lower mid and left side aspect of the chest. CT lumbar spine: There is a compression fracture of L1 vertebral body with 40% vertebral body height loss. When correlated with 02/11/15 CT scan, this fracture is seen compatible with an old fracture. No acute compression fracture. The L5/S1 discs demonstrate moderate height loss and mild disc height loss at L4/L5 is seen. There is no pars defect noted. The alignment at the posterior spinal line and facet joints is satisfactory. There is osseous bridging along the periphery of the endplates around L5/S1 level and suggestion of fusion of the facet joints at L5/S1 bilaterally. Bridging syndesmophytes in the upper lumbar spine is seen. No fracture is identified. IMPRESSION: CT thoracic spine: 1. Degenerative changes. No fracture seen. 2. 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 CT lumbar spine: Old L1 compression fracture. No acute fracture. Dictated by: Dictated on workstation # [id number]
--- NOTE | 2016-07-18 12:19 | Diagnostic Imaging Report ---
INDICATION: Right forearm pain. AP and lateral views of the right forearm are obtained. No fracture or acute bony abnormality is seen. IMPRESSION: Negative right forearm. Dictated by: Dictated on workstation # [id number]
--- NOTE | 2016-07-18 12:21 | Diagnostic Imaging Report ---
2 views of the humerus. INDICATION: Fall. FINDINGS: There is question of superior and anterior subluxation of the humeral head at the glenohumeral joint. Better evaluation with dedicated right shoulder views is recommended. There is suggestion of subchondral sclerosis of the humeral head and inferior osteophyte presumably degenerative. No fracture is seen. No radiopaque foreign body. IMPRESSION: Suggestion of anterior and superior subluxation of the right shoulder. If the injury or symptoms involve the right shoulder area, dedicated right shoulder radiographs are recommended for better evaluation. Dictated by: Dictated on workstation # [id number]
--- NOTE | 2016-07-18 12:24 | Diagnostic Imaging Report ---
AP view of the pelvis and bilateral hip radiographs. INDICATION: Fall. FINDINGS: No fracture or dislocation is seen. There is degenerative change seen in both hip joints with mild/ moderate joint space loss and subchondral sclerosis. There are also surgical clips seen in the pelvis. Prominent atherosclerotic calcification seen. There is suggestion of fusion of the SI joints. IMPRESSION: Degenerative changes and SI joint fusion. No fracture seen. Dictated by: Dictated on workstation # [id number]
--- NOTE | 2016-07-18 12:26 | Diagnostic Imaging Report ---
INDICATION: Fall. Right arm pain. DISCUSSION: Single portable supine view of the chest was obtained, comparison 07/15/2016. Stable heart size. Patchy opacity within the left midlung is stable, chronic appearing. No pleural fluid or pneumothorax identified on this supine exam. No acute osseous abnormality identified. IMPRESSION: Stable changes of chronic lung disease. Dictated by: Dictated on workstation # [id number]
[2016-07-18] MEDS ORDERED: HYDROcodone/APAP 5 MG/325 MG (LORTAB) TAB PO ONE (12:45)
--- NOTE | 2016-07-18 13:01 | Diagnostic Imaging Report ---
3 views of the right shoulder. INDICATION: Injury. FINDINGS: There is superior subluxation of the humeral head likely related to full-thickness tear of the rotator cuff, probably chronic. Advanced degenerative changes and remodeling of the glenohumeral joint with marginal osteophytes seen. The acromioclavicular joint demonstrates moderate degenerative changes. No acute fracture is evident. 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 Advanced degenerative changes. Dictated by: Dictated on workstation # [id number]
[2016-07-18 13:32] VITALS: BP 132/74
== END 2016-07-18 13:32 ==
LOC: EDUNIT# 11:14 → ER 11:15
DX: S01.01XA Laceration without foreign body of scalp, initial encounter (principal); Z23 Encounter for immunization; M47.812 Spondylosis without myelopathy or radiculopathy, cervical region; M47.814 Spondylosis without myelopathy or radiculopathy, thoracic region; I10 Essential (primary) hypertension; I69.992 Facial weakness following unspecified cerebrovascular disease; F03.90 Unspecified dementia, unspecified severity, without behavioral disturbance, psychotic disturbance, mood disturbance, and anxiety; Z79.82 Long term (current) use of aspirin; Z79.899 Other long term (current) drug therapy; Z85.46 Personal history of malignant neoplasm of prostate; W01.0XXA Fall on same level from slipping, tripping and stumbling without subsequent striking against object, initial encounter; Y92.129 Unspecified place in nursing home as the place of occurrence of the external cause; Y99.8 Other external cause status
CPT/HCPCS: 12001; 70450; 71010; 72125; 72128; 72131; 73030; 73060; 73090; 73521; 90471; 90715

== ENCOUNTER → 2016-08-01 | Outpatient (CLI) | payer MEDICARE, MEDICAID ==
--- NOTE | 2016-08-01 17:54 | Diagnostic Imaging Report ---
EXAMINATION: Three views of the right wrist. INDICATION: Right wrist pain after fall. FINDINGS: There are advanced degenerative changes at the scaphoid trapezium/scaphoid trapezoid joints with remodeling and joint space loss with significant subchondral sclerosis. There is also cystic change in the lunate. This is probably degenerative. No acute fracture is seen. No subluxation or dislocation. No radiopaque foreign body. IMPRESSION: Advanced degenerative changes. No fracture seen. Dictated by: Dictated on workstation # [id number]
== END ==
LOC: RAD 16:20
PROVIDERS: ATTEND Internal Medicine
DX: M19.031 Primary osteoarthritis, right wrist (principal); W19.XXXA Unspecified fall, initial encounter; Y99.8 Other external cause status
CPT/HCPCS: 73110